=== PATIENT | female | born 1960 | race Caucasian/White ===

== ENCOUNTER 2022-06-23 10:19 | Emergency (ER) | payer OTHER ==
[~2022-06-23] VITALS: Ht 157.5 cm; Wt 97.1 kg
[2022-06-23 10:31] VITALS: BP 137/63
--- NOTE | 2022-06-23 10:34 | NUR ---
AMBULATED TO BED 12
--- NOTE | 2022-06-23 10:42 | NUR ---
62 Y/O FEMALE BIB SELF C/O OF GENERALIZED BODY PAIN AND EPISODES OF SWELLING ON HANDS AND FEET X2 MONTHS, NO SWELLING ON FEET NOTED BUT SWELLING NOTED ON CHEEKS AND HANDS, NON-PITTING. PER PT SHE HAS NOT SEEN A DOCTOR STATING "I DONT LIKE GOING TO THE DOCTOR." PATIENT REPORTS TAKING TYLENOL AND IBUPROFEN WITH NO RELIEF. PMH: HTN, ASTHMA NKA
--- NOTE | 2022-06-23 10:58 | NUR ---
DR RICHARDS AT BEDSIDE FOR EVAL
[2022-06-23] MEDS ORDERED: KETOROLAC 60 MG/2 ML VIAL IM ONE (11:00)
[2022-06-23 12:23] LABS: BASOPHILS # (AUTO) 0.1 K/uL (0.00-0.22); EOSINOPHILS % (AUTO) 10.7 % (0.0-4.0); HEMATOCRIT 37.2 % (36-48); LYMPHOCYTES # (AUTO) 2.1 K/uL (2.5-16.5); LYMPHOCYTES % (AUTO) 22.1 % (20.5-51.1); MEAN CORPUSCULAR HEMOGLOBIN 24 pg (27-31); MEAN CORPUSCULAR HGB CONC 32 g/dL (33-37); MEAN CORPUSCULAR VOLUME 75.6 fL (80-94); MONOCYTES # (AUTO) 0.9 K/uL (0.8-1.0); MONOCYTES % (AUTO) 9.6 % (1.7-9.3); NEUTROPHILS # (AUTO) 5.3 K/uL (1.8-7.7); NEUTROPHILS % (AUTO) 56.6 % (42.2-75.2); PLATELET COUNT (AUTO) 236 K/uL (140-450); RED BLOOD CELL COUNT(AUTO) 4.92 MIL/uL (4.20-5.40); RED CELL DISTRIBUTION WIDTH 16.3 % (11.6-13.7); WHITE BLOOD COUNT (AUTO) 9.3 K/uL (4.8-10.8)
[2022-06-23 12:43] LABS: ANION GAP 11.8 (8-16); CARBON DIOXIDE 29.2 mmol/L (21-32); CREATININE 0.7 mg/dL (0.6-1.3)
--- NOTE | 2022-06-23 12:53 | NUR ---
PT DENIES PAIN AT THIS TIME
[2022-06-23] MEDS ORDERED: IBUP-2213 PO (12:56)
[2022-06-23 13:17] VITALS: BP 121/70
[2022-06-23] MEDS ORDERED: ACET-8386 PO (13:17)
--- NOTE | 2022-06-23 13:18 | NUR ---
Patient discharged with v/s stable. Written and verbal after care instructions given and explained. Patient alert, oriented and verbalized understanding of instructions. Ambulatory with steady gait. All questions addressed prior to discharge. ID band removed. Patient advised to follow up with PMD. Rx of MOTRIN, NORCO 5-325 given. Patient educated on indication of medication including possible reaction and side effects. Opportunity to ask questions provided and answered.
== END 2022-06-23 13:18 | disposition home or self-care (01) ==
LOC: MED 10:19
DX: M79.10 Myalgia, unspecified site (principal); R06.02 Shortness of breath; J45.909 Unspecified asthma, uncomplicated; I10 Essential (primary) hypertension; Z98.890 Other specified postprocedural states
CPT/HCPCS: 36415; 80048; 81002; 85025; 96372; 99283; J1885